=== PATIENT | female | born 1990 | race Caucasian/White ===

== ENCOUNTER 2020-06-11 07:22 | Day surgery (SDC) | payer OTHER ==
[2020-06-11] VITALS (10 sets, daily range): BP systolic 87–112; BP diastolic 52–71; PULSE 72–87; TEMP 98.6–98.8
[~2020-06-11] VITALS: Ht 167.6 cm; Wt 59.5 kg
[2020-06-11] MEDS ORDERED: CLOMID50 MG (07:58)
--- NOTE | 2020-06-11 08:51 | NUR ---
Dr. Woodard here to talk with the patient.
[2020-06-11] MEDS ORDERED: ULTRAM 50MG TAB50 MG PO (10:04)
--- NOTE | 2020-06-11 10:30 | NUR ---
Patient returns to room 3 per cart from PACU accompanied by Mikaela TALAVERA and is awake and alert. Temp 98.8 and room air sats 100%. Abdominal incisions x3 on abdomen covered with exofin. Abdomen soft. Denies pain or nausea at present time. Spouse in room. Siderails up x2 and call light in reach. Allowed to rest.
--- NOTE | 2020-06-11 10:45 | NUR ---
Resting with eyes closed and not disturbed. Spouse at side. IV fluids continue to infuse.
--- NOTE | 2020-06-11 11:00 | NUR ---
Continues to rest without complaints of pain or nausea.
--- NOTE | 2020-06-11 11:15 | NUR ---
Taking sips of water. Spouse in room and very attentative.
--- NOTE | 2020-06-11 11:30 | NUR ---
Room air sats 98%. Continues to rest without complaints.
--- NOTE | 2020-06-11 12:00 | NUR ---
Taking sips of water, eating pudding and applesauce.
--- NOTE | 2020-06-11 13:00 | NUR ---
Tolerated snack. Denies nausea.
--- NOTE | 2020-06-11 13:09 | NUR ---
Medicated with Ultram 50mg po for pain at 3-05/16. Allowed to rest without complaints of nausea.
--- NOTE | 2020-06-11 14:00 | NUR ---
States that pain pill was effective. Denies nausea.
--- NOTE | 2020-06-11 14:11 | NUR ---
IV to INT and assisted up to the bathroom. Tolerates activity well. Voids and returns to room. INT needle discontinued and patient becomes light headed. Resting on cart. Cool cloth on forehead. Allowed to rest.
--- NOTE | 2020-06-11 15:03 | NUR ---
Up and dressed. States that she is ready to go home. Denies feeling light headed, nauseated, or any uncontrolled pain. Spouse remains very attentative. Dismissal instructions given and patient voices understanding of these. Informed that script will be ready for hot die picker at [facility].
--- NOTE | 2020-06-11 15:05 | NUR ---
Patient dismissed to home driven by spouse and taken to the front door per wheelchair and assisted into vehicle by Verna RN with instructions in hand.
== END 2020-06-11 10:50 | disposition home or self-care (01) ==
LOC: SDCO 07:22
DX: K35.80 Unspecified acute appendicitis (principal); N83.201 Unspecified ovarian cyst, right side
CPT/HCPCS: J0690; J1100; J1885; J2405; J2704; J3010; J7120